=== PATIENT | male | born 1955 | race Caucasian/White ===

== ENCOUNTER 2017-12-03 09:14 | Outpatient (CLI) | payer OTHER ==
[2018-01-11 17:41] VITALS: BMI 24.0
== END 2017-12-03 10:40 ==
LOC: D.OPS 09:14
DX: K44.9 Diaphragmatic hernia without obstruction or gangrene (principal)

== ENCOUNTER 2018-01-11 07:31 | Day surgery (SDC) | payer OTHER ==
[~2018-01-11] VITALS: Ht 180.3 cm; Wt 78.2 kg
--- NOTE | ~2018-01-11 | OP ---
PATIENT NAME: STACI ARREGUIN MEDICAL RECORD: [id number] :51 LOCATION:D [id number] ADMISSION DATE: SURGEON: DOLLY LOW MD DATE OF OPERATION: 01/11/2018 SURGEON: Bridger Romano MD PNEUMATIC TUBE FITTER: Dolly Low MD PROCEDURE PERFORMED: Laparoscopic hiatal hernia repair with Juan fundoplication. ANESTHESIA: General. OPERATIVE COURSE: I assisted Dr. Romano in dissection of the hiatal hernia, dissection of the diaphragmatic hiatus, reduction of the hiatal hernia, closure of the hiatal hernia as well as creation of the Juan fundoplication. I was present and assisted during all mcgee portions of the operation. For full detailed operative report, please see Dr. Romano's operative note. TRANSINT:[id number] Voice Confirmation ID: [id number] DOCUMENT ID: [id number] DOLLY LOW MD at 2051 CC: [id number] DICTATION DATE: 01/11/18 1237 INFORMATION OFFICER: 01/11/18 1300 [facility] [address] [place] [address]
--- NOTE | ~2018-01-11 | MORECARE ---
CASE MANAGEMENT DISCHARGE SUMMARY PATIENT: STACI ARREGUIN UNIT: [id number] ADM DATE: 01/11/18 AGE: 63 : 51 SEX: M ROOM/BED: AUTHOR: CASE, SCANNING CLERK PHYSICIAN: REFERRING PHYSICIAN: TRI WALTON MD DATE OF SERVICE: 01/11/18 Discharge Plan Patient Name: STACI ARREGUIN Facility: [facility]:[place] : 1955 Planned Disposition: Anticipated Discharge Date: Discharge Date: 01/12/2018 Expected LOS: 0 Initial Reviewer: [id number] Initial Review Date: 01/12/2018 Generated: 01/28/18 11:05 am Patient Name: STACI ARREGUIN Page [id number] All edits/amendments must be made on the electronic document DICTATION DATE: 01/28/18 1005 PICKER / PACKER: 01/28/18 1005 RPT#: [id number] MD DATE:01/12/18 STATUS: [facility] [address] [place] [address] END OF REPORT
--- NOTE | ~2018-01-11 | OP ---
PATIENT NAME: STACI ARREGUIN MEDICAL RECORD: [id number] :51 LOCATION:D.[facility] ADMISSION DATE: SURGEON: TRI WALTON MD DATE OF OPERATION: 01/11/2018 PREOPERATIVE DIAGNOSES: 1. Volume gastroesophageal reflux. 2. Intractable gastroesophageal reflux. 3. Grade III paraesophageal hernia. POSTOPERATIVE DIAGNOSES: 1. Volume gastroesophageal reflux. 2. Intractable gastroesophageal reflux. 3. Grade III paraesophageal hernia. PROCEDURE: 1. Laparoscopic paraesophageal hernia repair. 2. Laparoscopic Juan fundoplication. SURGEON: Tri Walton MD TRUSS DRIVER HELPER: Dolly Low MD (JJ) BLOOD LOSS: Less than 25 mL. ANESTHESIA: General. The risks, possible complications and alternatives to the procedure were explained to the patient. He elects to proceed. OPERATIVE COURSE: The patient was conveyed to the operating room electively on 01/11/2018. General anesthesia was induced by the anesthesia staff. The abdomen was sterilely prepped and draped. An incision was accomplished within the umbilicus. There was an incarcerated umbilical hernia. Incarcerated preperitoneal fat was excised in a piecemeal fashion utilizing electrocautery. Through the hernia defect, I advanced a 12-mm trocar. Under direct internal vision utilizing television camera, after CO2 insufflation, two 5-mm trocars were inserted in the left side of the abdomen. A 12-mm trocar and a 5-mm trocar were inserted in the right side of abdomen. Through an incision just inferior to the xiphoid process, the Mitch retractor was advanced and placed on the left lateral segment of the liver and used to elevate the left lateral segment of the liver. This revealed a paraesophageal hernia. I grasped the stomach and retracted it caudad. I began to dissect out the large hernia sac. The phrenicoesophageal ligament was incised. Portions of adipose tissue within the hernia sac were excised in a piecemeal fashion. I entered first along the lesser curve of the stomach. We then took down the cardia of the stomach, took it away from the spleen. I took down the short gastrics along the greater curve of the stomach. A retroesophageal window was accomplished. I dissected out the mediastinum and dissected the esophagus free. I was able to dissect out a good bit of the esophagus, so that about 3-4 cm of esophageal length was now in the intra-abdominal compartment. The cardial fat pad was then taken off of the stomach with the Harmonic scalpel. OPERATIVE REPORT [id number] STACI ARREGUIN I widened the retroesophageal window. Retracting the esophagus anteriorly, I used the 0 Prolene Stratafix to close the crura posteriorly, thus completing the paraesophageal hernia repair. I was satisfied with the tightness of the closure. I then brought the fundus of the stomach around in the retroesophageal space and then around to the right side. I then performed a Juan fundoplication with a running 0 PDS Stratafix suture suturing the fundus of the stomach to the esophagus to fundus of the stomach. I ran this and essentially this was 3 sutures in this anterior Juan repair. There was no bleeding. Because the patient does have von Willebrand disease, he is going to be observed in the hospital overnight and an indicator drain was placed through the 5-mm trocar site far laterally in the left upper quadrant. The drain was sutured to the skin with a 2-0 nylon. Utilizing the Bishop-Alma suture closure device, the 11-mm trocar site was closed with 0 Vicryl suture. All the trocars were removed and the abdomen desufflated. The umbilical fascia defect was approximated with a [id number] 0 Vicryl suture. The skin at the umbilicus was closed with interrupted 4-0 Vicryl Rapide sutures. The other skin incisions were closed with interrupted intracuticular 4-0 Vicryls. Benzoin and Steri-Strips were applied. The patient was then extubated and conveyed to the post-anesthesia care unit where he was in stable condition. TRANSINT:[id number] Voice Confirmation ID: [id number] DOCUMENT ID: [id number] TRI WALTON MD at 1717 CC: DOLLY LOW MD [id number] DICTATION DATE: 01/11/18 1308 COLLECTION TELLER: 01/11/[address] [facility] 01/12/18 [id number] [place] [address]
[2018-01-11] MEDS ORDERED: PEPCID40 MG PO (08:40)
[2018-01-11] MEDS ORDERED: OMEPRAZOLE40 MG (08:40)
[2018-01-11] MEDS ORDERED: NAPROSYN500 MG PO (08:41)
[2018-01-11] MEDS ORDERED: ACETAMINOPHEN325 MG PO (08:43)
[2018-01-11] MEDS ORDERED: HYTRIN10 MG PO (08:44)
[2018-01-11] MEDS ORDERED: SYNTHROID25 MCG PO (08:45)
[2018-01-11] MEDS ORDERED: ZOCOR20 MG PO (08:45)
[2018-01-11] MEDS ORDERED: ELAVIL75 MG PO (08:47)
[2018-01-11 08:55] VITALS: BP 132/86; BMI 24.0
[2018-01-11 10:01] LABS: BASOPHILS 1.8 % (0-2); EOSINOPHILS 5.3 % (0-7); HEMATOCRIT 40.3 % (42.0-54.0); HEMOGLOBIN 13.4 g/dL (13.5-17.5); LYMPHOCYTES 26.6 % (15-50); MCH 29.7 pg (26.0-34.0); MCHC 33.3 g/dL (31.0-37.0); MCV 89.4 fL (80.0-100.0); MEAN PLATELET VOLUME 10.9 fL (7.4-10.4); MONOCYTES 9.5 % (2-11); NEUTROPHILS 56.8 % (40-80); PLATELET COUNT 192 10x3/uL (130-400); RBC 4.51 10x6/uL (4.20-6.10); RDW 13.1 % (11.5-14.5); WBC 4.5 10x3/uL (4.8-10.8)
[2018-01-11 10:14] LABS: APTT 33.4 SECONDS (22.8-39.4); INR 0.96 (0.85-1.17); PROTIME 12.4 SECONDS (11.6-15.0)
[2018-01-11 13:42] VITALS: BP 116/56
[2018-01-11 17:41] VITALS: BP 116/56; Ht 180.3 cm; Wt 78.2 kg
[2018-01-11 21:09] VITALS: BP 116/56
[2018-01-12 00:31] VITALS: BP 116/56
[2018-01-12 04:50] LABS: BASOPHILS 0 % (0-2); EOSINOPHILS 0 % (0-7); HEMOGLOBIN 12.2 g/dL (13.5-17.5); IMMATURE GRANULOCYTES 0.2 % (0-5); LYMPHOCYTES 4.4 % (15-50); MCH 29.4 pg (26.0-34.0); MCV 89.2 fL (80.0-100.0); MEAN PLATELET VOLUME 11.7 fL (7.4-10.4); MONOCYTES 2.1 % (2-11); NEUTROPHILS 93.3 % (40-80); PLATELET COUNT 192 10x3/uL (130-400); RBC 4.15 10x6/uL (4.20-6.10); RDW 12.9 % (11.5-14.5)
[2018-01-12 04:55] LABS: WBC 10.3 10x3/uL (4.8-10.8)
[2018-01-12 05:02] VITALS: BP 115/72
[2018-01-12 05:19] LABS: ALBUMIN 3.1 g/dL (3.4-5.0); ALKALINE PHOSPHATASE 43 U/L (46-116); ALT (SGPT) 97 U/L (10-68); BILIRUBIN - TOTAL 0.99 mg/dL (0.2-1.3); CALC OSMOLALITY 267 mosm/kg (275-300); CALCIUM 7.8 mg/dL (8.5-10.1); CARBON DIOXIDE 26.5 mmol/L (21.0-32.0); CHLORIDE - SERUM 100 mmol/L (98-107); CREATININE - SERUM 0.9 mg/dL (0.6-1.3); GLUCOSE 115 mg/dL (74-106); MAGNESIUM - SERUM 1.6 mg/dL (1.8-2.4); PHOSPHOROUS 3.1 mg/dL (2.5-4.9); POTASSIUM - SERUM 4.2 mmol/L (3.5-5.1); PROTEIN - SERUM 6.9 g/dL (6.4-8.2); SODIUM 134 mmol/L (136-145); UREA NITROGEN 10 mg/dL (7-18); eGFR NON AFRICAN AMERICAN 90 mL/min (90-120)
[2018-01-12 08:25] VITALS: BP 115/72
[2018-01-12 11:57] VITALS: BP 116/70
[2018-01-12 16:27] VITALS: BP 122/75
== END 2018-01-12 18:21 ==
LOC: D.OPS 07:31 → D.MS 13:14 → D.OPS 01-12 18:21
PROVIDERS: Anesthesiology; Surgery
DX: K21.9 Gastro-esophageal reflux disease without esophagitis (principal); K44.9 Diaphragmatic hernia without obstruction or gangrene; K42.0 Umbilical hernia with obstruction, without gangrene; Z01.812 Encounter for preprocedural laboratory examination